=== PATIENT | male | born 1990 | race Caucasian/White ===

== ENCOUNTER 2022-11-23 14:18 | Emergency (ER) | payer MEDICAID ==
[~2022-11-23] VITALS: Ht 170.2 cm; Wt 87.0 kg
[2022-11-23 14:24] VITALS: TEMP 98.1; O2SAT 99
[2022-11-23 15:07] VITALS: BP 143/105; PULSE 71; RESP 18
[2022-11-23] MEDS: ONDANSETRON HCL 4MG/2ML INJ IV STA (15:07)
[2022-11-23] MEDS: MORPHINE SULFATE 4 MG/ML CPJ (NOT FOR IM USE) IV STA (15:07)
[2022-11-23] MEDS: SODIUM CHLORIDE 0.9% 1,000 ML IV ONE (15:15)
[2022-11-23 15:33] LABS: CLARITY URINE CLOUDY (CLEAR); COLOR URINE YELLOW (YELLOW); GLUCOSE URINE NEGATIVE (NEGATIVE); KETONES URINE 1+ (NEGATIVE); LEUKOCYTE ESTERASE URINE NEGATIVE (NEGATIVE); NITRITE URINE NEGATIVE (NEGATIVE); OCCULT BLOOD URINE 3+ (NEGATIVE); PH URINE 6.5 (4.5-8.0); PROTEIN URINE 2+ (NEGATIVE); SPECIFIC GRAVITY URINE 1.024 (1.005-1.030)
[2022-11-23 15:36] LABS: RBC URINE TNTC /hpf (0-2); WBC URINE 0-2 /hpf (0-2); YEAST URINE NONE SEEN
[2022-11-23 15:51] LABS: BACTERIA URINE 2+
[2022-11-23 15:52] LABS: MUCUS URINE 1+ /lpf (NONE/TRACE); SQUAMOUS EPITHELIAL CELL URINE FEW /lpf (RARE/1+)
[2022-11-23 15:57] LABS: BASOPHILS % 0.1 % (0.0-2.0); EOSINOPHILS % 0.7 % (0.0-5.0); HEMATOCRIT. 48.9 % (42.0-52.0); HEMOGLOBIN. 17.1 g/dL (14.0-18.0); LYMPHOCYTES % 12.2 % (20.0-50.0); MEAN CORPUSCULAR HEMOGLOBIN 30.5 pg (28.0-32.0); MEAN CORPUSCULAR HGB CONC 34.9 g/dL (31.0-37.0); MEAN CORPUSCULAR VOLUME 87.2 fL (80.0-94.0); MEAN PLATELET VOLUME 8.1 fl (7.4-10.4); MONOCYTES % 5.2 % (2.0-8.0); NEUTROPHILS % 81.8 % (40.0-76.0); PLATELET 285 x1000/uL (130-400); RED BLOOD CELL COUNT 5.61 mill/uL (4.7-6.1); RED CELL DISTRIBUTION WIDTH 13.2 % (11.6-14.6); WHITE BLOOD COUNT 13.5 x1000/uL (4.5-11.0)
[2022-11-23 16:04] LABS: CHLORIDE 108 mEq/L (98-107); INDEX HEMOLYSI 1 (1-3); INDEX ICTERIC 1 (1-4); INDEX LIPEMIC 1 (1-3); POTASSIUM 3.7 mEq/L (3.5-5.1); SODIUM 138 mEq/L (136-145)
[2022-11-23 16:14] LABS: ALANINE AMINOTRANSFERASE 40 IU/L (13-61); ALBUMIN 4.7 g/dL (3.4-5.0); ASPARTATE AMINOTRANSFERASE 20 IU/L (15-37); BILIRUBIN TOTAL 0.8 mg/dL (0.1-1.0); CALCIUM 9.5 mg/dL (8.5-10.1); CARBON DIOXIDE 20 mEq/L (21-32); CREATININE 1.1 mg/dL (0.6-1.3); GLUCOSE 124 mg/dL (70-105); UREA NITROGEN BLOOD 12 mg/dL (7-21)
[2022-11-23] MEDS ORDERED: TAMS-11 MT (18:39)
[2022-11-23] MEDS ORDERED: CIPR500T5 MT (18:39)
[2022-11-23] MEDS ORDERED: IBUP-2028 MT (18:39)
[2022-11-23] MEDS ORDERED: HYDR-4001 MT (18:39)
[2022-11-23] MEDS: LEVOFLOXACIN 250MG TABLET PO ONE (19:12)
== END 2022-11-23 19:21 | disposition home or self-care (01) ==
LOC: ER 14:18
DX: N20.0 Calculus of kidney (principal)
CPT/HCPCS: 80053; 81003; 83690; 85025; 36415; 74176; 96361; 96374; 96375; 99285; J2405; J2270; J7030; Z7610 ×2